=== PATIENT | male | born 1995 | race Hispanic/Latino ===

== ENCOUNTER 2025-02-28 15:53 | Emergency (ER) | payer OTHER ==
[~2025-02-28] VITALS: Ht 162.6 cm; Wt 83.0 kg
[2025-02-28] MEDS ORDERED: HYDROCODONE/ACETA 5/325 TAB PO ONE (18:45)
[2025-02-28 18:59] VITALS: BP 134/73
== END 2025-02-28 19:11 | disposition home or self-care (01) ==
LOC: ED 15:53
DX: S82.141A Displaced bicondylar fracture of right tibia, initial encounter for closed fracture (principal); Y93.66 Activity, soccer
CPT/HCPCS: 73560; 73700; 99284-25